=== PATIENT | female | born 1975 | race African-American/Black ===

== ENCOUNTER 2022-01-20 09:17 | Emergency (ER) | payer OTHER ==
[~2022-01-20] VITALS: Ht 167.6 cm; Wt 51.3 kg
[2022-01-20] MEDS ORDERED: ONDANSETRON ODT 4 MG TAB.RAPDIS SL ONE (10:00)
--- NOTE | 2022-01-20 10:13 | NUR ---
patient with complaints of left ankle pain, right leg pain and vaginal discharge. pt seen by MD, pelvic exam performed by MD with female emergency doctor MP Sosa. urine sent to lab, blood drawn by lab personel. patient stable at this time.
[2022-01-20 10:16] LABS: HEMATOCRIT 41.9 % (31.2-41.9); MEAN CORPUSCULAR HEMOGLOBIN 31.8 uug (24.7-32.8); MEAN CORPUSCULAR VOLUME 92.9 fL (75.5-95.3); PLATELET COUNT (AUTO) 285 K/uL (179-408)
[2022-01-20 10:19] LABS: *BILIRUBIN,URIN 1+ (NEGATIVE); *BLOOD, URINE NEGATIVE (NEGATIVE); *CLARITY,URINE CLEAR (CLEAR); *COLOR,URINE YELLOW (YELLOW); *KETONES,URINE 1+ (NEGATIVE); LEUKOCYTE ESTERASE ,URINE NEGATIVE (NEGATIVE); NITRITE, URINE NEGATIVE (NEGATIVE); PH,URINE 7.5 (5.0-8.0); UGLUCOSE NEGATIVE (NEGATIVE)
[2022-01-20 10:20] LABS: *URINE HCG, QUAL NEG (NEGATIVE)
[2022-01-20] MEDS ORDERED: ONDANSETRON ODT 4 MG TAB.RAPDIS ONE (10:20)
[2022-01-20 10:23] LABS: CREATININE 0.7 mg/dL (0.6-1.3); POTASSIUM 3.9 mmol/L (3.5-5.1)
[2022-01-20 10:29] LABS: BILIRUBIN,TOTAL 0.1 mg/dL (0.2-1.0); TOTAL PROTEIN, SERUM 6.3 g/dL (6.4-8.2)
[2022-01-20] MEDS ORDERED: METRONIDAZOLE 500 MG TABLET PO ONE (10:30)
[2022-01-20] MEDS ORDERED: LIDOCAINE HCL 1% 20 ML VIAL MC ONE (10:30)
[2022-01-20] MEDS ORDERED: CEFTRIAXONE 1 G VIAL IM ONE (10:30)
[2022-01-20] MEDS ORDERED: DOXYCYCLINE HYCLATE 100 MG TABLET PO ONE (10:30)
[2022-01-20] MEDS ORDERED: FLUCONAZOLE 100 MG TABLET PO ONE (10:30)
[2022-01-20] MEDS ORDERED: METR500T PO (10:41)
[2022-01-20] MEDS ORDERED: DOXY100C5 PO (10:41)
[2022-01-20] MEDS ORDERED: DOXYCYCLINE HYCLATE 100 MG TABLET ONE (10:42)
[2022-01-20] MEDS ORDERED: CEFTRIAXONE 500 MG VIAL ONE (10:43)
[2022-01-20] MEDS ORDERED: FLUCONAZOLE 100 MG TABLET ONE ×2 (10:43)
[2022-01-20] MEDS ORDERED: METRONIDAZOLE 500 MG TABLET ONE (10:43)
[2022-01-20] MEDS ORDERED: LIDOCAINE HCL 1% 20 ML VIAL ONE (10:43)
[2022-01-20] MEDS ORDERED: TDAP DIPH,PERTUSS,TET VAC/PF 0.5 ML DISP.SYRIN IM ONE ×2 (10:45→10:58)
[2022-01-20] MEDS ORDERED: NEOMY/BACITRA/POLYMYXIN B OINT UD PACKET TP ONE (11:01)
[2022-01-20 12:46] LABS: RBC,URINE 0-3 /HPF (0-3)
[2022-01-20 12:47] LABS: BACTERIA,URINE NONE SEEN /HPF (NONE SEEN); SQUAMOUS EPITHELIAL CELL,UR FEW /HPF (NONE SEEN); WBC,URINE NONE SEEN /HPF (0-3)
[2022-01-22 02:06] LABS: *GC NAA Negative (Negative)
[2022-01-22 04:06] LABS: *TRIC.VAG. NAA Negative (Negative)
== END 2022-01-20 11:14 | disposition home or self-care (01) ==
LOC: ER 09:17
DX: B37.3 Candidiasis of vulva and vagina (principal); R10.2 Pelvic and perineal pain; F20.9 Schizophrenia, unspecified; J45.909 Unspecified asthma, uncomplicated; F31.9 Bipolar disorder, unspecified
CPT/HCPCS: 99284; 80053; 81001; 87806; 84703; 83690; 85025; 36415; 73130; 73610; 73630; 90715; 96372; 90471; 87491; J0696; J3490; A4663; Q0162